=== PATIENT | female | born 1970 | race Caucasian/White ===

== ENCOUNTER 2018-11-29 00:14 | Emergency (ER) | payer OTHER ==
[2018-11-29 00:20] VITALS: BP 131/85; PULSE 100; TEMP 98.3
--- NOTE | 2018-11-29 01:45 | XR ---
EXAM: XR Spine Scoliosis, 2 or 3 Views CLINICAL HISTORY: ITS.REASON XR Reason: Pain TECHNIQUE: Frontal and lateral views of the sacrum/coccyx. COMPARISON: No relevant prior studies available. FINDINGS: Bones show no acute or healing fracture or malalignment. Sacral neural foramina are intact. No significant degenerative changes. No unusual lytic or sclerotic lesions. Normal soft tissues. IMPRESSION: No acute or healing fracture or malalignment. No findings to explain pain.
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
[2018-11-29] MEDS ORDERED: IBUPROFEN 800 MG TAB PO STA (02:49)
[2018-11-29 03:36] VITALS: RESP 17
== END 2018-11-29 03:11 | disposition home or self-care (01) ==
LOC: EC 00:14
DX: S09.90XA Unspecified injury of head, initial encounter (principal); M53.3 Sacrococcygeal disorders, not elsewhere classified; F17.200 Nicotine dependence, unspecified, uncomplicated; Z88.2 Allergy status to sulfonamides; Y04.2XXA Assault by strike against or bumped into by another person, initial encounter; Y92.89 Other specified places as the place of occurrence of the external cause; Z53.20 Procedure and treatment not carried out because of patient's decision for unspecified reasons
CPT/HCPCS: 72220; 99284